=== PATIENT | female | born 1950 | race African-American/Black ===

== ENCOUNTER 2018-05-09 12:00 | Emergency (ER) | payer MEDICARE ==
[~2018-05-09 12:00] MED LIST: ISOVUE-370 76%-LOCM 1 ML ONE
[2018-05-09] MEDS ORDERED: Morphine 2 MG/ML SYRINGE ONE ×2 (12:21→12:27)
[2018-05-09] MEDS ORDERED: Ondansetron HCl/PF 4 MG/2 ML Vial ONE (12:21)
[2018-05-09 12:28] LABS: #Eosinphils 0.2 thou/uL (0.0-0.7); #Lymphocytes 1.7 thou/uL (1.20-3.40); #Monocytes 0.4 thou/uL (0.11-0.59); #Neutrophils 1.8 thou/uL (1.40-6.50); %Basophils 0.8 % (0.0-1.0); %Eosinophils 4.3 % (0.0-10.0); %Lymphocytes 40.7 % (21.0-51.0); %Monocytes 10.6 % (0.0-10.0); %Neutrophils 43.7 % (42.0-75.0); Mean Corpuscular HGB CONC 30.7 g/dL (32.0-36.0); Mean Corpuscular Hemoglobin 27.4 pg (27.0-31.0); Mean Corpuscular Volume 89.2 fL (78.0-98.0); Platelet Count 266 thou/uL (130-400); RBC Distribution Width 12.2 % (11.5-14.5); Red Blood Cell (RBC) Count 5.48 mill/uL (4.20-5.40); White Blood Cell (WBC) Count 4.1 thou/uL (4.8-10.8)
[2018-05-09 12:45] LABS: ALT (SGPT) 15 U/L (8-55); AST (SGOT) 22 U/L (5-34); Albumin 4.6 g/dL (3.4-4.8); Alkaline Phosphatase 104 U/L (40-150); Anion Gap 14 mmol/L (10-20); BUN (Urea Nitrogen) 15 mg/dL (9.8-20.1); Bilirubin, Total 0.8 mg/dL (0.2-1.2); Calc. Creatinine Clearance 0 mL/min (70-130); Calcium 10.3 mg/dL (7.8-10.44); Carbon Dioxide 20 mmol/L (23-31); Chloride 106 mmol/L (98-107); Estimated GFR-MDRD 47; Globulin 3.2 g/dL (2.4-3.5); Glucose 99 mg/dL (80-115); Lipase 34 U/L (8-78); Potassium 4.4 mmol/L (3.5-5.1); Protein, Total 7.8 g/dL (6.0-8.3); Sodium 136 mmol/L (136-145)
[2018-05-09 14:39] LABS: Bilirubin Negative (Negative); Blood, Urine Negative (Negative); Clarity CLEAR (Clear); Glucose, Urine (Dipstick) Negative (Negative); Leukocyte Negative (Negative); Nitrite Negative (Negative); Protein, Urine (Dipstick) Negative (Neg-Trace); Urobilinogen 0.2 mg/dL (0.2-1.0)
--- NOTE | 2018-05-09 14:49 | CT ---
CT ABDOMEN AND PELVIS WITH IV CONTRAST: Date: 05/09/18 HISTORY: 68-year-old female with abdominal pain, nausea, and vomiting. FINDINGS: There is a calcified granuloma in the lingula. No pleural effusions are seen. The patient is post cho lecystectomy. The liver, pancreas, adrenal glands, and right kidney are normal. There is a small cyst in the posterior cortex of the left kidney. Calcified granuloma is seen in the spleen. No free air, free fluid, or lymphadenopathy seen in the abdomen or pelvis. There are bilateral hip re placements resulting in artifact that reduces the sensitivity of the exam to evaluate pelvic contents . There is colonic diverticulosis without evidence of diverticulitis. IMPRESSION: No acute process. POS: [facility]
[2018-05-09] MEDS ORDERED: Lidocaine Viscous Sol 2% 15 ml UD Cup ONE (15:08)
[2018-05-09] MEDS ORDERED: Mag-Al 1200 mg/1200 mg/30 ML UDCUP ONE (15:08)
== END 2018-05-09 15:17 | disposition home or self-care (01) ==
LOC: ERS 12:00
DX: R10.9 Unspecified abdominal pain (principal); E78.5 Hyperlipidemia, unspecified; K21.9 Gastro-esophageal reflux disease without esophagitis; J45.909 Unspecified asthma, uncomplicated; E66.9 Obesity, unspecified; Z86.718 Personal history of other venous thrombosis and embolism; Z79.899 Other long term (current) drug therapy; Z79.891 Long term (current) use of opiate analgesic
CPT/HCPCS: 74177; 80053; 81003; 83690; 85025; 96361; 96374; 96375; J2270; J2405

== ENCOUNTER 2021-04-22 10:47 | Emergency (ER) | payer MEDICARE ==
[2021-04-22 11:41] LABS: #Eosinphils 0.2 thou/uL (0.0-0.7); #Lymphocytes 1.6 thou/uL (1.20-3.40); #Monocytes 0.8 thou/uL (0.11-0.59); #Neutrophils 3.5 thou/uL (1.40-6.50); %Basophils 0.3 % (0.0-1.0); %Eosinophils 3.2 % (0.0-10.0); %Lymphocytes 25.7 % (21.0-51.0); %Monocytes 12.8 % (0.0-10.0); %Neutrophils 58.1 % (42.0-75.0); Mean Corpuscular HGB CONC 32.5 g/dL (32.0-36.0); Mean Corpuscular Hemoglobin 29.6 pg (27.0-31.0); Mean Corpuscular Volume 91.1 fL (78.0-98.0); Mean Platelet Volume 7.4 fL (7.4-10.4); Platelet Count 228 thou/uL (130-400); RBC Distribution Width 12.2 % (11.5-14.5); Red Blood Cell (RBC) Count 4.74 mill/uL (4.20-5.40); White Blood Cell (WBC) Count 6.1 thou/uL (4.8-10.8)
[2021-04-22 12:19] LABS: ALT (SGPT) 16 U/L (8-55); AST (SGOT) 22 U/L (5-34); Albumin 4.3 g/dL (3.4-4.8); Alkaline Phosphatase 70 U/L (40-110); Anion Gap 15 mmol/L (10-20); BUN (Urea Nitrogen) 19 mg/dL (9.8-20.1); Bilirubin, Total 1.1 mg/dL (0.2-1.2); Calc. Creatinine Clearance 0 mL/min (70-130); Calcium 10.2 mg/dL (7.8-10.44); Carbon Dioxide 25 mmol/L (23-31); Chloride 105 mmol/L (98-107); Globulin 2.7 g/dL (2.4-3.5); Glucose 100 mg/dL (80-115); Lipase 25 U/L (8-78); Potassium 4.2 mmol/L (3.5-5.1); Sodium 141 mmol/L (136-145)
== END 2021-04-22 14:57 | disposition home or self-care (01) ==
LOC: ERS 10:47
DX: K43.9 Ventral hernia without obstruction or gangrene (principal); E78.5 Hyperlipidemia, unspecified; E78.00 Pure hypercholesterolemia, unspecified; J45.909 Unspecified asthma, uncomplicated; K21.9 Gastro-esophageal reflux disease without esophagitis; E66.9 Obesity, unspecified; F17.220 Nicotine dependence, chewing tobacco, uncomplicated; Z86.718 Personal history of other venous thrombosis and embolism
CPT/HCPCS: 36415; 71045; 80053; 83690; 85025; 93005

== ENCOUNTER 2021-09-04 12:23 | Inpatient (IN) | payer MEDICARE ==
[~2021-09-04 12:23] MED LIST changes: -ISOVUE-370 76%-LOCM 1 ML ONE; +Iopamidol 370 76% 100 ML VIAL ONE
[2021-09-04 15:53] LABS: #Lymphocytes 1.4 thou/uL (1.20-3.40); #Monocytes 0.7 thou/uL (0.11-0.59); #Neutrophils 3.7 thou/uL (1.40-6.50); %Basophils 0.2 % (0.0-1.0); %Eosinophils 0.8 % (0.0-10.0); %Lymphocytes 23.9 % (21.0-51.0); %Monocytes 12.1 % (0.0-10.0); %Neutrophils 62.9 % (42.0-75.0); Hemoglobin 12.9 g/dL (12.0-16.0); Mean Corpuscular HGB CONC 31.1 g/dL (32.0-36.0); Mean Corpuscular Volume 93.3 fL (78.0-98.0); Mean Platelet Volume 6.9 fL (7.4-10.4); Platelet Count 240 thou/uL (130-400); RBC Distribution Width 13.2 % (11.5-14.5); Red Blood Cell (RBC) Count 4.47 mill/uL (4.20-5.40); White Blood Cell (WBC) Count 5.9 thou/uL (4.8-10.8)
[2021-09-04 16:02] LABS: INR-International Normal Ratio 1.4; PTT 31.2 sec (22.9-36.1); Prothrombin Time 17.7 sec (12.0-14.7)
[2021-09-04] MEDS ORDERED: Aspirin 300 MG Suppository ONE (16:14)
[2021-09-04 16:24] LABS: ALT (SGPT) 34 U/L (8-55); AST (SGOT) 25 U/L (5-34); Albumin 3.6 g/dL (3.4-4.8); Alkaline Phosphatase 51 U/L (40-110); Anion Gap 16 mmol/L (10-20); BUN (Urea Nitrogen) 14 mg/dL (9.8-20.1); Bilirubin, Total 1.6 mg/dL (0.2-1.2); Calc. Creatinine Clearance 0 mL/min (70-130); Calcium 9.7 mg/dL (7.8-10.44); Carbon Dioxide 24 mmol/L (23-31); Chloride 100 mmol/L (98-107); Globulin 2.7 g/dL (2.4-3.5); Glucose 76 mg/dL (80-115); Lipase 29 U/L (8-78); Potassium 3.5 mmol/L (3.5-5.1); Protein, Total 6.3 g/dL (5.8-8.1); Sodium 136 mmol/L (136-145)
[2021-09-04] MEDS ORDERED: Ondansetron ODT 4 MG TAB PO PRN (17:22)
[2021-09-04] MEDS ORDERED: Ondansetron PF 4 MG/2 ML Vial IVP PRN (17:22)
[2021-09-04] MEDS: Mometasone 100 MCG/Formoterol 5 MCG 120 PUFF INHALER INH SCH (19:00)
[2021-09-04] MEDS: Nitroglycerin 0.4 MG TAB (25 Tab Bottle) SL PRN (22:50)
[2021-09-04 23:10] LABS: Troponin I 0.015 ng/mL (< 0.028)
[2021-09-04] MEDS: Apixaban 5 MG TAB PO SCH (23:45)
[2021-09-04] MEDS: Atorvastatin Calcium 20 MG TAB PO SCH (23:45)
[2021-09-05] MEDS: Nitroglycerin 0.4 MG TAB (25 Tab Bottle) SL PRN (04:07)
[2021-09-05] MEDS: Levothyroxine Sodium 88 MCG TAB PO SCH (05:39)
[2021-09-05] MEDS ORDERED: Lorazepam 2 MG/ML VIAL SLOW IVP SCH (07:00)
[2021-09-05] MEDS: Mometasone 100 MCG/Formoterol 5 MCG 120 PUFF INHALER INH SCH ×2 (07:44→20:05)
[2021-09-05] MEDS ORDERED: FLU VACC QS2021-22(65YR UP)/PF 240 MCG/0.7 ML SYRINGE IM ONE (09:00)
[2021-09-05] MEDS: Spironolactone 25 MG TAB PO SCH (09:41)
[2021-09-05] MEDS: Apixaban 5 MG TAB PO SCH ×2 (09:41→22:08)
[2021-09-05] MEDS: Aspirin 81 mg Enteric Coated Tablet PO SCH (09:41)
[2021-09-05 15:08] LABS: #Eosinphils 0.2 thou/uL (0.0-0.7); #Lymphocytes 1.6 thou/uL (1.20-3.40); #Monocytes 1.3 thou/uL (0.11-0.59); #Neutrophils 5.5 thou/uL (1.40-6.50); %Basophils 0.3 % (0.0-1.0); %Eosinophils 1.8 % (0.0-10.0); %Lymphocytes 18.4 % (21.0-51.0); %Monocytes 14.8 % (0.0-10.0); %Neutrophils 64.7 % (42.0-75.0); Hemoglobin 13.3 g/dL (12.0-16.0); Mean Corpuscular HGB CONC 31.7 g/dL (32.0-36.0); Mean Corpuscular Hemoglobin 28.9 pg (27.0-31.0); Mean Corpuscular Volume 91.3 fL (78.0-98.0); Mean Platelet Volume 7.4 fL (7.4-10.4); Platelet Count 149 thou/uL (130-400); RBC Distribution Width 13.2 % (11.5-14.5); Red Blood Cell (RBC) Count 4.61 mill/uL (4.20-5.40); White Blood Cell (WBC) Count 8.6 thou/uL (4.8-10.8)
[2021-09-05 15:43] LABS: ALT (SGPT) 38 U/L (8-55); AST (SGOT) 72 U/L (5-34); Albumin 3.3 g/dL (3.4-4.8); Alkaline Phosphatase 52 U/L (40-110); Anion Gap 19 mmol/L (10-20); BUN (Urea Nitrogen) 16 mg/dL (9.8-20.1); Bilirubin, Total 1.3 mg/dL (0.2-1.2); Calc. Creatinine Clearance 98 mL/min (70-130); Calcium 9.9 mg/dL (7.8-10.44); Carbon Dioxide 20 mmol/L (23-31); Chloride 103 mmol/L (98-107); Cholesterol 127 mg/dl (< 200 Desired); Glucose 93 mg/dL (80-115); HDL Cholesterol 42 mg/dL (>60 Neg Risk); LDL Cholesterol, Calculated 62 mg/dL; Potassium 3.5 mmol/L (3.5-5.1); Protein, Total 6.3 g/dL (5.8-8.1); Sodium 138 mmol/L (136-145); Triglycerides 114 mg/dL (Less than 150)
[2021-09-05 16:15] LABS: SARS-CoV-2 PCR by NAA Indeterminate (NotDetected)
[2021-09-05] MEDS ORDERED: traMADol HCl 50 MG TAB PO SCH (21:45)
[2021-09-05] MEDS: Atorvastatin Calcium 20 MG TAB PO SCH (22:08)
[2021-09-05 23:46] LABS: SARS-CoV-2 NAA Rapid Test DETECTED (NotDetected)
[2021-09-05] MEDS ORDERED: guaiFENesin 200 MG TAB PO PRN (23:55)
[2021-09-06] MEDS: Albuterol 200 PUFF (6.7GM INHALER) INH SCH ×4 (01:55→18:00)
[2021-09-06] MEDS: Cepastat Lozenges 1 LOZ PO PRN (06:32)
[2021-09-06] MEDS: Levothyroxine Sodium 88 MCG TAB PO SCH (06:32)
[2021-09-06] MEDS: Apixaban 5 MG TAB PO SCH ×3 (09:22→21:25)
[2021-09-06] MEDS: Ascorbic Acid 500 mg Chewable Tablet PO SCH (09:22)
[2021-09-06] MEDS: Aspirin 81 mg Enteric Coated Tablet PO SCH ×2 (09:22→10:31)
[2021-09-06] MEDS: Zinc Sulfate 220 MG CAP PO SCH (09:22)
[2021-09-06] MEDS: Spironolactone 25 MG TAB PO SCH ×2 (09:22→10:31)
[2021-09-06] MEDS: Nitroglycerin 0.4 MG TAB (25 Tab Bottle) SL PRN (09:29)
[2021-09-06] MEDS ORDERED: Morphine 4 MG/ML VIAL SLOW IVP PRN (10:04)
[2021-09-06] MEDS ORDERED: Morphine 4 MG/ML VIAL SLOW IVP SCH (10:15)
[2021-09-06 10:41] LABS: Troponin I 0.019 ng/mL (< 0.028)
[2021-09-06] MEDS: Mometasone 100 MCG/Formoterol 5 MCG 120 PUFF INHALER INH SCH ×2 (14:01→18:13)
[2021-09-06] MEDS: Benzonatate 100 MG CAP PO PRN (21:24)
[2021-09-06] MEDS: Acetaminophen 325 MG TAB PO PRN (21:24)
[2021-09-06] MEDS: Atorvastatin Calcium 20 MG TAB PO SCH (21:25)
[2021-09-07] MEDS: Cepastat Lozenges 1 LOZ PO PRN ×3 (02:47→18:14)
[2021-09-07] MEDS: Albuterol 200 PUFF (6.7GM INHALER) INH SCH ×4 (02:47→18:42)
[2021-09-07] MEDS: Levothyroxine Sodium 88 MCG TAB PO SCH (05:50)
[2021-09-07] MEDS: Mometasone 100 MCG/Formoterol 5 MCG 120 PUFF INHALER INH SCH ×2 (05:50→18:13)
[2021-09-07] MEDS: Aspirin 81 mg Enteric Coated Tablet PO SCH (08:52)
[2021-09-07] MEDS: Spironolactone 25 MG TAB PO SCH (08:53)
[2021-09-07] MEDS: Zinc Sulfate 220 MG CAP PO SCH (08:53)
[2021-09-07] MEDS: Apixaban 5 MG TAB PO SCH ×2 (08:53→21:21)
[2021-09-07] MEDS: Nystatin 500,000 UNITS/5 ML UDCUP SSW SCH ×4 (08:53→21:21)
[2021-09-07] MEDS: Ascorbic Acid 500 mg Chewable Tablet PO SCH (09:16)
[2021-09-07] MEDS: Benzonatate 100 MG CAP PO PRN (21:21)
[2021-09-07] MEDS: Atorvastatin Calcium 20 MG TAB PO SCH (21:21)
[2021-09-07] MEDS: traMADol HCl 50 MG TAB PO PRN (21:21)
[2021-09-07] MEDS: Lactated Ringer's 1,000 ML IV SCH (21:44)
[2021-09-08] MEDS: Albuterol 200 PUFF (6.7GM INHALER) INH SCH ×4 (00:58→17:22)
[2021-09-08 06:14] LABS: Hemoglobin 12.7 g/dL (12.0-16.0); Mean Corpuscular HGB CONC 31.5 g/dL (32.0-36.0); Mean Corpuscular Hemoglobin 29.5 pg (27.0-31.0); Mean Corpuscular Volume 93.8 fL (78.0-98.0); Mean Platelet Volume 7.4 fL (7.4-10.4); Platelet Count 191 thou/uL (130-400); RBC Distribution Width 13.2 % (11.5-14.5); Red Blood Cell (RBC) Count 4.29 mill/uL (4.20-5.40)
[2021-09-08 06:21] LABS: ALT (SGPT) 34 U/L (8-55); AST (SGOT) 47 U/L (5-34); Albumin 3.4 g/dL (3.4-4.8); Alkaline Phosphatase 54 U/L (40-110); Anion Gap 13 mmol/L (10-20); BUN (Urea Nitrogen) 14 mg/dL (9.8-20.1); Bilirubin, Direct 0.5 mg/dL (0.1-0.3); Bilirubin, Total 1.3 mg/dL (0.2-1.2); Calc. Creatinine Clearance 2284 mL/min (70-130); Calcium 10.1 mg/dL (7.8-10.44); Carbon Dioxide 26 mmol/L (23-31); Chloride 103 mmol/L (98-107); Glucose 104 mg/dL (80-115); Potassium 3.6 mmol/L (3.5-5.1); Protein, Total 6.3 g/dL (5.8-8.1); Sodium 138 mmol/L (136-145)
[2021-09-08 06:33] LABS: Band 1 % (5-11); Eosinophils 5 % (0-10); Lymphocytes 28 % (21-51); MDiff Complete? YES; Monocytes 10 % (0-10); Neutrophil 56 % (42-75)
[2021-09-08] MEDS: Lactated Ringer's 1,000 ML IV SCH ×2 (06:41→18:25)
[2021-09-08] MEDS: Mometasone 100 MCG/Formoterol 5 MCG 120 PUFF INHALER INH SCH ×2 (06:42→18:15)
[2021-09-08] MEDS: Levothyroxine Sodium 88 MCG TAB PO SCH (06:42)
[2021-09-08] MEDS: Aspirin 81 mg Enteric Coated Tablet PO SCH (08:39)
[2021-09-08] MEDS: Apixaban 5 MG TAB PO SCH ×2 (08:40→21:06)
[2021-09-08] MEDS: Acetaminophen 325 MG TAB PO PRN (08:40)
[2021-09-08] MEDS: Ascorbic Acid 500 mg Chewable Tablet PO SCH ×2 (08:41→09:17)
[2021-09-08] MEDS: Zinc Sulfate 220 MG CAP PO SCH ×2 (08:41→09:18)
[2021-09-08] MEDS: Spironolactone 25 MG TAB PO SCH (08:41)
[2021-09-08] MEDS: Nystatin 500,000 UNITS/5 ML UDCUP SSW SCH ×4 (08:41→21:06)
[2021-09-08] MEDS: Cepastat Lozenges 1 LOZ PO PRN (12:58)
[2021-09-08] MEDS: methylPREDNISolone Sod Succ 40 MG VIAL IVP SCH ×2 (17:38→17:39)
[2021-09-08] MEDS: traMADol HCl 50 MG TAB PO PRN (17:39)
[2021-09-08 17:43] LABS: Actual Bicarbonate (HCO3a) 28.1 mEq/L (22-28); Base Excess (BEa) 4.2 mEq/L (-2.0 to +3.0); CO2 Tension 39.3 mmHg (35.0-45.0); Calcium, Ionized (arterial) 1.24 mmol/L (1.12-1.30); Carboxyhemoglobin (COHb) 0.5 gm% (0.0-3.0); Hemoglobin (Hb) 12.5 g/dL (12.0-16.0); Potassium - ABG Lab 3.25 mmol/L (3.70-5.30); pH, Arterial 7.47 (7.35-7.45)
[2021-09-08 17:44] LABS: ALV-art Gradient 25.605 mmHg (0-20); Puncture Site LRA
[2021-09-08 18:44] VITALS: BMI 98.8
[2021-09-08] MEDS: Atorvastatin Calcium 20 MG TAB PO SCH (21:06)
[2021-09-08] MEDS ORDERED: Fluconazole In NaCl,Iso-Osm 400 MG in Premix Bag 1 BAG IVPB SCH (23:00)
[2021-09-09] MEDS: Albuterol 200 PUFF (6.7GM INHALER) INH SCH ×4 (00:29→20:10)
[2021-09-09] MEDS: traMADol HCl 50 MG TAB PO PRN (00:30)
[2021-09-09] MEDS: Cepastat Lozenges 1 LOZ PO PRN (00:30)
[2021-09-09] MEDS: Mometasone 100 MCG/Formoterol 5 MCG 120 PUFF INHALER INH SCH ×2 (05:46→17:51)
[2021-09-09] MEDS: Levothyroxine Sodium 88 MCG TAB PO SCH (05:47)
[2021-09-09 06:26] LABS: #Lymphocytes 0.4 thou/uL (1.20-3.40); #Monocytes 0.1 thou/uL (0.11-0.59); #Neutrophils 4.9 thou/uL (1.40-6.50); %Eosinophils 0.1 % (0.0-10.0); %Monocytes 1.5 % (0.0-10.0); %Neutrophils 91.5 % (42.0-75.0); Mean Corpuscular HGB CONC 31.3 g/dL (32.0-36.0); Mean Corpuscular Hemoglobin 29.3 pg (27.0-31.0); Mean Corpuscular Volume 93.7 fL (78.0-98.0); Mean Platelet Volume 7.4 fL (7.4-10.4); Platelet Count 182 thou/uL (130-400); RBC Distribution Width 13.3 % (11.5-14.5); Red Blood Cell (RBC) Count 4.11 mill/uL (4.20-5.40); White Blood Cell (WBC) Count 5.4 thou/uL (4.8-10.8)
[2021-09-09 06:41] LABS: Anion Gap 15 mmol/L (10-20); BUN (Urea Nitrogen) 15 mg/dL (9.8-20.1); Calc. Creatinine Clearance 263 mL/min (70-130); Calcium 9.9 mg/dL (7.8-10.44); Carbon Dioxide 23 mmol/L (23-31); Chloride 103 mmol/L (98-107); Glucose 122 mg/dL (80-115); Potassium 3.8 mmol/L (3.5-5.1); Sodium 137 mmol/L (136-145)
[2021-09-09] MEDS: Zinc Sulfate 220 MG CAP PO SCH (08:24)
[2021-09-09] MEDS: Ascorbic Acid 500 mg Chewable Tablet PO SCH (08:24)
[2021-09-09] MEDS: Aspirin 81 mg Enteric Coated Tablet PO SCH (08:25)
[2021-09-09] MEDS: Apixaban 5 MG TAB PO SCH ×2 (08:25→20:11)
[2021-09-09] MEDS: Nystatin 500,000 UNITS/5 ML UDCUP SSW SCH ×4 (08:25→20:11)
[2021-09-09] MEDS: Spironolactone 25 MG TAB PO SCH (08:25)
[2021-09-09] MEDS: methylPREDNISolone Sod Succ 40 MG VIAL IVP SCH (17:52)
[2021-09-09] MEDS: Atorvastatin Calcium 20 MG TAB PO SCH (20:11)
[2021-09-09] MEDS ORDERED: Lorazepam 0.5 MG TAB PO SCH (20:15)
[2021-09-09 20:24] LABS: Reticulocyte Count 1.5 % (0.5-1.5)
[2021-09-10] MEDS: Albuterol 200 PUFF (6.7GM INHALER) INH SCH ×4 (00:54→21:53)
[2021-09-10] MEDS: Acetaminophen 325 MG TAB PO PRN (04:09)
[2021-09-10] MEDS: Mometasone 100 MCG/Formoterol 5 MCG 120 PUFF INHALER INH SCH ×2 (05:50→17:49)
[2021-09-10] MEDS: Levothyroxine Sodium 88 MCG TAB PO SCH (05:50)
[2021-09-10 06:07] LABS: #Lymphocytes 0.5 thou/uL (1.20-3.40); #Monocytes 0.2 thou/uL (0.11-0.59); %Eosinophils 0.1 % (0.0-10.0); %Lymphocytes 5.6 % (21.0-51.0); %Monocytes 1.9 % (0.0-10.0); %Neutrophils 92.4 % (42.0-75.0); Hemoglobin 12.3 g/dL (12.0-16.0); Mean Corpuscular HGB CONC 31.8 g/dL (32.0-36.0); Mean Corpuscular Hemoglobin 29.2 pg (27.0-31.0); Mean Platelet Volume 7.3 fL (7.4-10.4); Platelet Count 191 thou/uL (130-400); RBC Distribution Width 13.5 % (11.5-14.5); Red Blood Cell (RBC) Count 4.21 mill/uL (4.20-5.40); White Blood Cell (WBC) Count 8.7 thou/uL (4.8-10.8)
[2021-09-10 06:22] LABS: Anion Gap 12 mmol/L (10-20); BUN (Urea Nitrogen) 15 mg/dL (9.8-20.1); Calc. Creatinine Clearance 110 mL/min (70-130); Calcium 10.5 mg/dL (7.8-10.44); Carbon Dioxide 28 mmol/L (23-31); Chloride 102 mmol/L (98-107); Glucose 146 mg/dL (80-115); Potassium 4.1 mmol/L (3.5-5.1); Sodium 138 mmol/L (136-145)
[2021-09-10] MEDS ORDERED: Morphine 4 MG/ML VIAL SLOW IVP SCH (07:00)
[2021-09-10] MEDS ORDERED: Morphine 2 MG/ML VIAL SLOW IVP SCH (07:00)
[2021-09-10] MEDS: Nitroglycerin 0.4 MG TAB (25 Tab Bottle) SL PRN (07:22)
[2021-09-10 07:26] LABS: Troponin I 0.011 ng/mL (< 0.028)
[2021-09-10] MEDS: Nystatin 500,000 UNITS/5 ML UDCUP SSW SCH ×4 (09:49→21:53)
[2021-09-10] MEDS: predniSONE 20 MG TAB PO SCH (09:49)
[2021-09-10] MEDS: Aspirin 81 mg Enteric Coated Tablet PO SCH (09:49)
[2021-09-10] MEDS: Zinc Sulfate 220 MG CAP PO SCH (09:50)
[2021-09-10] MEDS: Apixaban 5 MG TAB PO SCH ×2 (09:50→21:54)
[2021-09-10] MEDS: Fluconazole 100 MG TAB PO SCH (09:50)
[2021-09-10] MEDS: Ascorbic Acid 500 mg Chewable Tablet PO SCH (09:50)
[2021-09-10] MEDS: Spironolactone 25 MG TAB PO SCH (09:50)
[2021-09-10] MEDS: Atorvastatin Calcium 20 MG TAB PO SCH (21:54)
[2021-09-11] MEDS: Albuterol 200 PUFF (6.7GM INHALER) INH SCH ×2 (01:41→07:11)
[2021-09-11 04:54] VITALS: TEMP 97.7
[2021-09-11 05:57] LABS: #Lymphocytes 0.8 thou/uL (1.20-3.40); #Monocytes 0.7 thou/uL (0.11-0.59); #Neutrophils 8.7 thou/uL (1.40-6.50); %Eosinophils 0.2 % (0.0-10.0); %Lymphocytes 8.1 % (21.0-51.0); %Neutrophils 84.7 % (42.0-75.0); Hemoglobin 12.2 g/dL (12.0-16.0); Mean Corpuscular HGB CONC 31.3 g/dL (32.0-36.0); Mean Corpuscular Volume 92.5 fL (78.0-98.0); Mean Platelet Volume 7.4 fL (7.4-10.4); Platelet Count 193 thou/uL (130-400); RBC Distribution Width 13.5 % (11.5-14.5); Red Blood Cell (RBC) Count 4.23 mill/uL (4.20-5.40); White Blood Cell (WBC) Count 10.2 thou/uL (4.8-10.8)
[2021-09-11 06:16] LABS: Anion Gap 12 mmol/L (10-20); BUN (Urea Nitrogen) 18 mg/dL (9.8-20.1); Calc. Creatinine Clearance 109 mL/min (70-130); Calcium 10.5 mg/dL (7.8-10.44); Carbon Dioxide 28 mmol/L (23-31); Chloride 101 mmol/L (98-107); Glucose 129 mg/dL (80-115); Potassium 3.7 mmol/L (3.5-5.1); Sodium 137 mmol/L (136-145)
[2021-09-11] MEDS: Levothyroxine Sodium 88 MCG TAB PO SCH (07:11)
[2021-09-11] MEDS: Mometasone 100 MCG/Formoterol 5 MCG 120 PUFF INHALER INH SCH (07:16)
[2021-09-11 08:26] VITALS: BP 107/64
[2021-09-11] MEDS: Nystatin 500,000 UNITS/5 ML UDCUP SSW SCH (09:27)
[2021-09-11] MEDS: Fluconazole 100 MG TAB PO SCH (09:27)
[2021-09-11] MEDS: Aspirin 81 mg Enteric Coated Tablet PO SCH (09:27)
[2021-09-11] MEDS: predniSONE 20 MG TAB PO SCH (09:28)
[2021-09-11] MEDS: Ascorbic Acid 500 mg Chewable Tablet PO SCH (09:28)
[2021-09-11] MEDS: Apixaban 5 MG TAB PO SCH (09:29)
[2021-09-11] MEDS: Spironolactone 25 MG TAB PO SCH (09:29)
[2021-09-11] MEDS: Zinc Sulfate 220 MG CAP PO SCH (09:29)
== END 2021-09-11 10:20 | disposition home health service (06) | DRG 368 ==
LOC: ERS 12:23 → NEURO 16:41 → OBSVTOIN 09-06 17:21
PROVIDERS: ADMIT Internal Medicine; ATTEND Hospitalist
PROC: 8E0ZXY6 Isolation (ICD-10-PCS; principal; 2021-09-06)
DX: B37.81 Candidal esophagitis (principal); U07.1 COVID-19; J12.82 Pneumonia due to coronavirus disease 2019; D68.59 Other primary thrombophilia; Z68.42 Body mass index [BMI] 45.0-49.9, adult; R47.01 Aphasia; J45.901 Unspecified asthma with (acute) exacerbation; B37.0 Candidal stomatitis; I10 Essential (primary) hypertension; E66.01 Morbid (severe) obesity due to excess calories; E03.9 Hypothyroidism, unspecified; E78.5 Hyperlipidemia, unspecified; R13.12 Dysphagia, oropharyngeal phase; Z96.643 Presence of artificial hip joint, bilateral; Z96.651 Presence of right artificial knee joint; Z88.1 Allergy status to other antibiotic agents; Z88.8 Allergy status to other drugs, medicaments and biological substances; Z79.899 Other long term (current) drug therapy; Z79.01 Long term (current) use of anticoagulants; Z79.890 Hormone replacement therapy; Z86.73 Personal history of transient ischemic attack (TIA), and cerebral infarction without residual deficits; Z86.718 Personal history of other venous thrombosis and embolism; Z90.49 Acquired absence of other specified parts of digestive tract
CPT/HCPCS: 36415; 36600; 70450; 70491; 70551; 71045; 71260; 74230; 80048; 80053; 80061; 80076; 82247; 82805; 83010; 83615; 83690; 83970; 84443; 84484; 85025; 85046; 85060; 85303; 85305; 85610; 85730; 86038; 86140; 86225; 93005; 93010; 93306; 94664; 94760; 95816; 95819; 95957; 96374; 96375; 96376; G0378; J1450; J2060; J2270; J2920; J7120; J7512; Q9967; U0002; U0003; U0005